=== PATIENT | female | born 1935 | race Caucasian/White ===

== ENCOUNTER 2021-10-01 15:50 | Emergency (ER) | payer OTHER ==
[2021-10-01 15:57] VITALS: BMI 30.2
[2021-10-01] MEDS ORDERED: LIDOCAINE VISCOUS 2% ORAL/TOP 15 ML UNIT-DOSE CUP MM ONE (16:32)
[2021-10-01] MEDS ORDERED: LIDOCAINE VISCOUS 2% ORAL/TOP 15 ML UNIT-DOSE CUP ONE (16:41)
[2021-10-01] MEDS ORDERED: FAMOTIDINE 10 MG TABLET PO ONE (16:46)
[2021-10-01] MEDS ORDERED: MAG HYDROX/AL HYDROX/SIMETH 30 ML UNIT-DOSE CUP PO ONE (16:46)
[2021-10-01] MEDS ORDERED: METOCLOPRAMIDE HCL INJECTION 10 MG/2 ML VIAL IVPB ONE (16:51)
[2021-10-01] MEDS ORDERED: MAG HYDROX/AL HYDROX/SIMETH 30 ML UNIT-DOSE CUP ONE (16:53)
[2021-10-01] MEDS ORDERED: FAMOTIDINE 20 MG TABLET ONE (16:53)
[2021-10-01] MEDS ORDERED: METOCLOPRAMIDE HCL INJECTION 10 MG/2 ML VIAL ONE (16:53)
[2021-10-01 17:21] LABS: BASO % 0.3 % (0-2.0); EOS % 0.5 % (0-4.5); HEMOGLOBIN 13.7 GM/dL (10.7-15.3); LYMPH % 15.9 % (8-40); MCH 29.3 pg (25.7-33.7); MCHC 34.2 g/dl (32.0-36.0); MEAN CELL VOLUME 85.6 fl (80-96); MEAN PLT VOLUME 7.2 fl (7.5-11.1); MONO % 4.1 % (3.8-10.2); NEUT % 79.2 % (42.8-82.8); PLATELET COUNT 263 10^3/uL (134-434); RBC 4.67 M/mm3 (3.60-5.2); RDW 13.8 % (11.6-15.6); WHITE BLOOD COUNT 9.8 K/mm3 (4.0-10.0)
[2021-10-01 17:36] LABS: CHLORIDE 96 mmol/L (98-107); SODIUM 131 mmol/L (136-145)
[2021-10-01 17:39] LABS: ALBUMIN 3.7 g/dl (3.4-5.0); ANION GAP 7 MMOL/L (8-16); BLOOD UREA NITROGEN 12.6 mg/dL (7-18); CALCIUM 8.6 mg/dL (8.5-10.1); CO2 28 mmol/L (21-32); GLUCOSE,RANDOM 142 mg/dL (74-106); LIPASE 82 U/L (73-393); MAGNESIUM 1.7 mg/dL (1.8-2.4)
[2021-10-01 17:42] LABS: CREATININE 0.8 mg/dL (0.55-1.3); SGOT/AST 21 U/L (15-37); SGPT/ALT 22 U/L (13-61)
[2021-10-01 17:43] LABS: PHOSPHOROUS 3.5 mg/dL (2.5-4.9)
[2021-10-01 17:44] LABS: BILIRUBIN,TOTAL 0.6 mg/dL (0.2-1); TOT PROT 7.4 g/dl (6.4-8.2)
[2021-10-01 17:45] LABS: ALK PHOS 47 U/L (45-117)
[2021-10-01] MEDS ORDERED: CEFEPIME HCL/D5W 2 GM/50 ML BAG IVPB ONE (19:32)
[2021-10-01] MEDS ORDERED: VORICONAZOLE 50 MG TABLET (RESTRICTED TO ID) PO ONE (19:57)
[2021-10-01] MEDS ORDERED: CEFEPIME 2 GM/100 ML BAG IVPB ONE (20:43)
[2021-10-01 20:53] VITALS: TEMP 97.5
[2021-10-01] MEDS ORDERED: VORICONAZOLE PO ONE (21:00)
[2021-10-01 22:49] VITALS: BP 148/65; PULSE 80
== END 2021-10-01 22:49 | disposition short-term general hospital (02) ==
LOC: JER 15:50
DX: H92.01 Otalgia, right ear (principal); H70.91 Unspecified mastoiditis, right ear
CPT/HCPCS: 36415; 70470-TC; 70481-TC; 71045-TC-FY; 80053; 83690; 83735; 84100; 84484; 85025; 93005; 93010; 96365; 99285-25; C9803; J3465; Q9967; U0003; U0005

== ENCOUNTER 2023-04-19 19:54 | Observation (INO) | payer OTHER ==
[2023-04-19 19:58] VITALS: BMI 30.2
[2023-04-19 21:42] LABS: BASO % 0.4 % (0-2.0); EOS % 1.3 % (0-4.5); HEMATOCRIT 36.2 % (32.4-45.2); HEMOGLOBIN 12.4 GM/dL (10.7-15.3); LYMPH % 12.2 % (8-40); MCH 29.2 pg (25.7-33.7); MCHC 34.2 g/dl (32.0-36.0); MEAN CELL VOLUME 85.6 fl (80-96); MEAN PLT VOLUME 7.2 fl (7.5-11.1); MONO % 6.3 % (3.8-10.2); NEUT % 79.8 % (42.8-82.8); PLATELET COUNT 222 10^3/uL (134-434); RBC 4.24 M/mm3 (3.60-5.2); RDW 14.4 % (11.6-15.6); WHITE BLOOD COUNT 12.5 K/mm3 (4.0-10.0)
[2023-04-19 21:46] LABS: EPI CELLS 7 /uL (0-25.1); HYALINE CASTS 1 /uL (0-3.1); PH,URINE 5.5 (5.0-8.0); URINE APPEARANCE Error; URINE BACTERIA 2525 /uL (0-1359); URINE BILIRUBIN NEGATIVE (NEGATIVE); URINE COLOR DK YELLOW; URINE GLUCOSE (UA) NEGATIVE (NEGATIVE); URINE KETONE TRACE (NEGATIVE); URINE LEUK ESTERASE 3+ (NEGATIVE); URINE NITRITE POSITIVE (NEGATIVE); URINE PROTEIN 3+ (NEGATIVE); URINE RBC 15270 /uL (0-23.9); URINE WBC 7642 /uL (0-25.8)
[2023-04-19 21:51] LABS: INR 1.03 (0.83-1.09)
[2023-04-19 21:53] LABS: ACTIVATED PTT 30.2 SECONDS (25.2-36.5)
[2023-04-19 22:02] LABS: POTASSIUM 4.8 mmol/L (3.5-5.1)
[2023-04-19 22:04] LABS: ALBUMIN 3.7 g/dl (3.4-5.0); BLOOD UREA NITROGEN 15.4 mg/dL (7-18); CALCIUM 8.9 mg/dL (8.5-10.1)
[2023-04-19 22:05] LABS: MAGNESIUM 1.7 mg/dL (1.8-2.4)
[2023-04-19] MEDS ORDERED: CEFTRIAXONE 1 GM in DEXTROSE 5%-WATER - 100 ML IVPB ONE (22:05)
[2023-04-19] MEDS ORDERED: CEFTRIAXONE 1 GM/50 ML BAG ONE (22:06)
[2023-04-19 22:08] LABS: CREATININE 0.9 mg/dL (0.55-1.3)
[2023-04-19 22:09] LABS: BILIRUBIN,TOTAL 0.4 mg/dL (0.2-1); TOT PROT 6.9 g/dl (6.4-8.2)
[2023-04-20] MEDS ORDERED: MAGNESIUM SULF 50% (8.12 MEQ/2 ML-1 GM VIAL) IVPB ONE (00:48)
[2023-04-20] MEDS ORDERED: MAGNESIUM 2GM/50ML STERILE WATER IVPB IVPB ONE (00:48)
[2023-04-20] MEDS ORDERED: MAGNESIUM SULFATE IN WATER 2 GM/50 ML IVPB IVPB ONE (00:57)
[2023-04-20] MEDS: LEVOTHYROXINE NA 150 MCG TABLET PO SCH (07:06)
[2023-04-20] MEDS: LOSARTAN POTASSIUM 50 MG TABLET PO SCH (09:43)
[2023-04-20] MEDS: CEFTRIAXONE 1 GM in DEXTROSE 5%-WATER - 50 ML IVPB SCH (09:43)
[2023-04-20] MEDS: PANTOPRAZOLE 40 MG TABLET PO SCH (09:43)
[2023-04-20] MEDS ORDERED: POLYETHYLENE GLYCOL 3350 255 GM BTL PO ONE (10:42)
[2023-04-20] MEDS: NEBIVOLOL 5 MG TABLET (FP) PO SCH (10:49)
[2023-04-20] MEDS: rOPINIRole HCL 0.5 MG TABLET PO SCH ×2 (10:49→21:44)
[2023-04-20 10:57] LABS: BASO % 0.3 % (0-2.0); EOS % 1.6 % (0-4.5); HEMATOCRIT 38.9 % (32.4-45.2); HEMOGLOBIN 13.2 GM/dL (10.7-15.3); MCH 29.2 pg (25.7-33.7); MCHC 33.9 g/dl (32.0-36.0); MEAN CELL VOLUME 85.9 fl (80-96); MEAN PLT VOLUME 7.5 fl (7.5-11.1); MONO % 6.3 % (3.8-10.2); NEUT % 70.8 % (42.8-82.8); PLATELET COUNT 223 10^3/uL (134-434); RBC 4.53 M/mm3 (3.60-5.2); RDW 13.5 % (11.6-15.6)
[2023-04-20 11:08] LABS: POTASSIUM 5.2 mmol/L (3.5-5.1)
[2023-04-20 11:21] LABS: BLOOD UREA NITROGEN 11.8 mg/dL (7-18); CALCIUM 9.5 mg/dL (8.5-10.1)
[2023-04-20 11:25] LABS: CREATININE 0.7 mg/dL (0.55-1.3)
[2023-04-20] MEDS ORDERED: SODIUM PHOSPHATE/NA BIPHOS 133 ML ENEMA RC ONE ×2 (12:00→16:00)
[2023-04-20] MEDS ORDERED: SODIUM CHLORIDE 0.45% 1,000 ML IV SCH (17:00)
[2023-04-20] MEDS ORDERED: ACETAMINOPHEN 325 MG TABLET (FP) PO ONE (19:47)
[2023-04-20] MEDS: INSULIN SLIDING SCALE (NOVOLOG) 1 VIAL SQ SCH (21:48)
[2023-04-20] MEDS ORDERED: ATORVASTATIN CA 20 MG TABLET (FP) PO SCH (22:00)
[2023-04-21] MEDS: LEVOTHYROXINE NA 150 MCG TABLET PO SCH (06:04)
[2023-04-21] MEDS: INSULIN SLIDING SCALE (NOVOLOG) 1 VIAL SQ SCH ×3 (06:04→16:24)
[2023-04-21] MEDS: LOSARTAN POTASSIUM 50 MG TABLET PO SCH (10:50)
[2023-04-21] MEDS: NEBIVOLOL 5 MG TABLET (FP) PO SCH (10:50)
[2023-04-21] MEDS: CEFTRIAXONE 1 GM in DEXTROSE 5%-WATER - 50 ML IVPB SCH (10:50)
[2023-04-21] MEDS: PANTOPRAZOLE 40 MG TABLET PO SCH (10:50)
[2023-04-21] MEDS: rOPINIRole HCL 0.5 MG TABLET PO SCH (10:50)
[2023-04-21] MEDS ORDERED: BISACODYL 5 MG TABLET.DR (FP) PO ONE (14:00)
[2023-04-21 15:55] VITALS: BP 129/55; PULSE 67; RESP 18; TEMP 98.9
[2023-04-21] MEDS ORDERED: POLYETHYLENE GLYCOL 3350 255 GM BTL PO ONE (16:00)
[2023-04-22] MEDS ORDERED: SODIUM PHOSPHATE/NA BIPHOS 133 ML ENEMA RC ONE (10:00)
[2023-04-22] MEDS ORDERED: SODIUM PHOSPHATE/NA BIPHOS 133 ML ENEMA PR ONE (10:05)
== END 2023-04-21 18:22 | disposition home or self-care (01) ==
LOC: JER 19:54 → JERBED 23:39 → J5S 04-20 01:58
PROVIDERS: ADMIT Internal Medicine; ATTEND Family Medicine
PROC: 3E03329 Introduction of Other Anti-infective into Peripheral Vein, Percutaneous Approach (ICD-10-PCS; principal; 2023-04-19)
PROC: 3E0337Z Introduction of Electrolytic and Water Balance Substance into Peripheral Vein, Percutaneous Approach (ICD-10-PCS; 2023-04-19)
DX: N39.0 Urinary tract infection, site not specified (principal); K82.8 Other specified diseases of gallbladder; R93.5 Abnormal findings on diagnostic imaging of other abdominal regions, including retroperitoneum; I10 Essential (primary) hypertension; E11.9 Type 2 diabetes mellitus without complications; R10.30 Lower abdominal pain, unspecified; E03.9 Hypothyroidism, unspecified; K21.9 Gastro-esophageal reflux disease without esophagitis; H92.01 Otalgia, right ear; H70.91 Unspecified mastoiditis, right ear; Z79.84 Long term (current) use of oral hypoglycemic drugs
CPT/HCPCS: 0241U-QW; 36415; 71045-TC-FY; 74176-TC; 76705-TC; 80048; 80053; 81003; 82962; 83735; 84439; 84443; 85025; 85610; 85730; 86850; 86900; 86901; 87086; 87186; 93005; 93010; 96365; 96375; 99285-25; G0378

== ENCOUNTER 2023-10-09 13:50 | Emergency (ER) | payer OTHER ==
[2023-10-09 14:28] VITALS: TEMP 97.6; BMI 30.2
[2023-10-09] MEDS ORDERED: ACETAMINOPHEN 325 MG TABLET (FP) PO ONE (15:26)
[2023-10-09 15:53] LABS: BASO % 0.3 % (0-2.0); EOS % 0.9 % (0-4.5); HEMATOCRIT 40.2 % (32.4-45.2); LYMPH % 22.3 % (8-40); MCH 27.9 pg (25.7-33.7); MCHC 32.3 g/dl (32.0-36.0); MEAN CELL VOLUME 86.5 fl (80-96); MEAN PLT VOLUME 7.3 fl (7.5-11.1); MONO % 6.1 % (3.8-10.2); NEUT % 70.4 % (42.8-82.8); PLATELET COUNT 238 10^3/uL (134-434); RBC 4.65 M/mm3 (3.60-5.2); RDW 14.3 % (11.6-15.6); WHITE BLOOD COUNT 8.7 K/mm3 (4.0-10.0)
[2023-10-09 16:03] LABS: EPI CELLS 2 /uL (0-25.1); HYALINE CASTS 0 /uL (0-3.1); PH,URINE 5.5 (5.0-8.0); URINE APPEARANCE CLEAR; URINE BACTERIA 10 /uL (0-1359); URINE BILIRUBIN NEGATIVE (NEGATIVE); URINE COLOR YELLOW; URINE GLUCOSE (UA) NEGATIVE (NEGATIVE); URINE KETONE NEGATIVE (NEGATIVE); URINE LEUK ESTERASE TRACE (NEGATIVE); URINE NITRITE NEGATIVE (NEGATIVE); URINE PROTEIN NEGATIVE (NEGATIVE); URINE RBC 9 /uL (0-23.9); URINE UROBILINOGEN 0.2 mg/dL (0.2-1.0); URINE WBC 13 /uL (0-25.8)
[2023-10-09] MEDS ORDERED: ACETAMINOPHEN 325 MG TABLET (FP) ONE (16:03)
[2023-10-09 16:15] LABS: POTASSIUM 4.7 mmol/L (3.5-5.1)
[2023-10-09 16:18] LABS: ALBUMIN 3.6 g/dl (3.4-5.0); BLOOD UREA NITROGEN 17.1 mg/dL (7-18)
[2023-10-09 16:21] LABS: CREATININE 0.6 mg/dL (0.55-1.3)
[2023-10-09 16:22] LABS: BILIRUBIN,TOTAL 0.4 mg/dL (0.2-1)
[2023-10-09 18:51] VITALS: BP 128/62; PULSE 76; RESP 18
== END 2023-10-09 21:06 | disposition home or self-care (01) ==
LOC: JER 13:50
DX: S22.32XA Fracture of one rib, left side, initial encounter for closed fracture (principal); J90 Pleural effusion, not elsewhere classified; S39.012A Strain of muscle, fascia and tendon of lower back, initial encounter; M54.50 Low back pain, unspecified; R10.9 Unspecified abdominal pain; W01.0XXA Fall on same level from slipping, tripping and stumbling without subsequent striking against object, initial encounter; Y93.01 Activity, walking, marching and hiking
CPT/HCPCS: 36415; 70450-TC; 71260-TC; 72100-TC-FY; 72125-TC; 72170-TC-FY; 73502-TC-RT-FY; 74177-TC; 80053; 81003; 85025; 87086; 93005; 93010; 99285-25; Q9967

== ENCOUNTER 2024-06-16 11:05 | Emergency (ER) | payer OTHER ==
[2024-06-16 11:30] VITALS: BP 150/73; PULSE 71; RESP 16; TEMP 98.7; BMI 27.8
[2024-06-16 12:36] LABS: BASO % 0.4 % (0-2.0); EOS % 1.3 % (0-4.5); HEMATOCRIT 39.2 % (32.4-45.2); HEMOGLOBIN 13.1 GM/dL (10.7-15.3); LYMPH % 28.3 % (8-40); MCH 28.6 pg (25.7-33.7); MCHC 33.5 g/dl (32.0-36.0); MEAN CELL VOLUME 85.5 fl (80-96); MEAN PLT VOLUME 6.9 fl (7.5-11.1); PLATELET COUNT 233 10^3/uL (134-434); RBC 4.59 M/mm3 (3.60-5.2); RDW 14.3 % (11.6-15.6); WHITE BLOOD COUNT 8.5 K/mm3 (4.0-10.0)
[2024-06-16 12:37] LABS: EPI CELLS 4 /uL (0-25.1); HYALINE CASTS 1 /uL (0-3.1); PH,URINE 5.5 (5.0-8.0); URINE APPEARANCE CLEAR; URINE BACTERIA 852 /uL (0-1359); URINE BILIRUBIN NEGATIVE (NEGATIVE); URINE COLOR YELLOW; URINE GLUCOSE (UA) NEGATIVE (NEGATIVE); URINE KETONE NEGATIVE (NEGATIVE); URINE LEUK ESTERASE 2+ (NEGATIVE); URINE NITRITE NEGATIVE (NEGATIVE); URINE PROTEIN NEGATIVE (NEGATIVE); URINE RBC 26 /uL (0-23.9); URINE UROBILINOGEN 0.2 mg/dL (0.2-1.0); URINE WBC 499 /uL (0-25.8)
[2024-06-16 13:01] LABS: CALCIUM 8.7 mg/dL (8.5-10.1)
[2024-06-16 13:02] LABS: ALBUMIN 3.7 g/dl (3.4-5.0); BLOOD UREA NITROGEN 10.4 mg/dL (7-18)
[2024-06-16 13:05] LABS: CREATININE 0.6 mg/dL (0.55-1.3)
[2024-06-16 13:06] LABS: BILIRUBIN,TOTAL 0.7 mg/dL (0.2-1); TOT PROT 7.1 g/dl (6.4-8.2)
[2024-06-16 17:14] LABS: HIV INTERPRETATION NEGATIVE (NEGATIVE)
== END 2024-06-16 14:03 | disposition home or self-care (01) ==
LOC: JER 11:05
DX: N39.0 Urinary tract infection, site not specified (principal); R30.0 Dysuria; R11.10 Vomiting, unspecified; R10.30 Lower abdominal pain, unspecified; H92.02 Otalgia, left ear; Z20.822 Contact with and (suspected) exposure to COVID-19
CPT/HCPCS: 0241U-QW; 36415; 80053; 81003; 85025; 86803; 87086; 87186; 87389; 93005; 93010; 99283-25

== ENCOUNTER 2024-06-17 18:07 | Observation (INO) | payer OTHER ==
[2024-06-17 18:29] VITALS: BMI 30.7
[2024-06-17] MEDS ORDERED: ONDANSETRON *ODT* 4 MG TABLET ONE (19:14)
[2024-06-17] MEDS ORDERED: FAMOTIDINE 20 MG TABLET ONE (19:14)
[2024-06-17] MEDS: FAMOTIDINE 20 MG TABLET PO ONE (19:18)
[2024-06-17] MEDS: ONDANSETRON *ODT* 4 MG TABLET SL ONE (19:18)
[2024-06-17] MEDS: LACTATED RINGERS SOLUTION 1000 ML INFUS.BAG IV ONE ×2 (20:03→22:59)
[2024-06-17 20:06] LABS: BASO % 0.2 % (0-2.0); EOS % 1.8 % (0-4.5); HEMATOCRIT 37.4 % (32.4-45.2); HEMOGLOBIN 12.5 GM/dL (10.7-15.3); LYMPH % 4.9 % (8-40); MCH 28.3 pg (25.7-33.7); MCHC 33.3 g/dl (32.0-36.0); MEAN CELL VOLUME 84.8 fl (80-96); MEAN PLT VOLUME 6.9 fl (7.5-11.1); MONO % 4.8 % (3.8-10.2); NEUT % 88.3 % (42.8-82.8); PLATELET COUNT 209 10^3/uL (134-434); RBC 4.41 M/mm3 (3.60-5.2); RDW 14.6 % (11.6-15.6)
[2024-06-17] MEDS ORDERED: CEFTRIAXONE 1 GM/50 ML BAG ONE (20:14)
[2024-06-17 20:44] LABS: POTASSIUM 4.5 mmol/L (3.5-5.1)
[2024-06-17 20:45] LABS: CALCIUM 8.6 mg/dL (8.5-10.1)
[2024-06-17 20:46] LABS: ALBUMIN 3.4 g/dl (3.4-5.0); BLOOD UREA NITROGEN 20.3 mg/dL (7-18)
[2024-06-17 20:49] LABS: CREATININE 1.6 mg/dL (0.55-1.3)
[2024-06-17 20:51] LABS: BILIRUBIN,TOTAL 0.6 mg/dL (0.2-1); TOT PROT 6.2 g/dl (6.4-8.2)
[2024-06-17 21:34] LABS: EPI CELLS 28 /uL (0-25.1); HYALINE CASTS 4 /uL (0-3.1); PH,URINE 5.5 (5.0-8.0); URINE APPEARANCE CLEAR; URINE BACTERIA 31 /uL (0-1359); URINE BILIRUBIN NEGATIVE (NEGATIVE); URINE COLOR YELLOW; URINE GLUCOSE (UA) NEGATIVE (NEGATIVE); URINE KETONE NEGATIVE (NEGATIVE); URINE LEUK ESTERASE 2+ (NEGATIVE); URINE NITRITE NEGATIVE (NEGATIVE); URINE PROTEIN NEGATIVE (NEGATIVE); URINE RBC 38 /uL (0-23.9); URINE UROBILINOGEN 0.2 mg/dL (0.2-1.0); URINE WBC 319 /uL (0-25.8)
[2024-06-18] MEDS ORDERED: ACETAMINOPHEN INJECTION 100 ML IVPB ONE (00:23)
[2024-06-18] MEDS: ACETAMINOPHEN 1000 MG/100 ML BAG IVPB ONE (00:25)
[2024-06-18] MEDS ORDERED: TRIMETHOBENZAMIDE HCL 200MG/2ML INJ IM ONE (02:28)
[2024-06-18] MEDS: TRIMETHOBENZAMIDE HCL 200MG/2ML INJ IM ONE (02:35)
[2024-06-18] MEDS: LACTATED RINGERS SOLUTION 1,000 ML/1,000 ML INFUS.BAG IV SCH (03:14)
[2024-06-18] MEDS ORDERED: HEPARIN NA (PORCINE) 5,000 UNITS/ML 1ML VIAL ONE (05:57)
[2024-06-18] MEDS: HEPARIN NA (PORCINE) 5,000 UNITS/ML 1ML VIAL SQ SCH (06:04)
[2024-06-18 06:38] LABS: BASO % 0.2 % (0-2.0); EOS % 3.4 % (0-4.5); HEMATOCRIT 35.6 % (32.4-45.2); LYMPH % 10.1 % (8-40); MCH 28.7 pg (25.7-33.7); MCHC 33.8 g/dl (32.0-36.0); MEAN CELL VOLUME 85.1 fl (80-96); MEAN PLT VOLUME 7.4 fl (7.5-11.1); MONO % 5.2 % (3.8-10.2); NEUT % 81.1 % (42.8-82.8); PLATELET COUNT 182 10^3/uL (134-434); RBC 4.18 M/mm3 (3.60-5.2); RDW 14.8 % (11.6-15.6); WHITE BLOOD COUNT 9.3 K/mm3 (4.0-10.0)
[2024-06-18] MEDS ORDERED: PANTOPRAZOLE 40 MG TABLET PO ONE (07:13)
[2024-06-18] MEDS ORDERED: LEVOTHYROXINE NA 25 MCG TABLET (FP) ONE (07:13)
[2024-06-18] MEDS ORDERED: LEVOTHYROXINE NA 100 MCG TABLET (FP) ONE (07:13)
[2024-06-18 07:15] LABS: POTASSIUM 4.1 mmol/L (3.5-5.1)
[2024-06-18] MEDS: PANTOPRAZOLE 40 MG TABLET PO SCH (07:19)
[2024-06-18] MEDS: LEVOTHYROXINE NA 125 MCG TABLET (FP) PO SCH (07:19)
[2024-06-18 07:23] LABS: CALCIUM 7.9 mg/dL (8.5-10.1)
[2024-06-18 07:24] LABS: BLOOD UREA NITROGEN 16.1 mg/dL (7-18); MAGNESIUM 1.6 mg/dL (1.8-2.4)
[2024-06-18 07:27] LABS: CREATININE 0.9 mg/dL (0.55-1.3)
[2024-06-18 07:28] LABS: BILIRUBIN,TOTAL 0.6 mg/dL (0.2-1); TOT PROT 5.4 g/dl (6.4-8.2)
[2024-06-18] MEDS: ERTAPENEM SODIUM 1 GM in SODIUM CHLORIDE 50 ML IVPB SCH (13:30)
[2024-06-18] MEDS: rOPINIRole HCL 0.5 MG TABLET PO SCH (14:06)
[2024-06-18] MEDS: CEFTRIAXONE 1 GM in DEXTROSE 5%-WATER - 50 ML IVPB SCH (14:17)
[2024-06-18] MEDS: ROSUVASTATIN CA 10 MG TABLET PO SCH (21:36)
[2024-06-18] MEDS: ONDANSETRON 4 MG/2 ML VIAL IVPUSH ONE (21:36)
[2024-06-19] MEDS: ACETAMINOPHEN 1000 MG/100 ML BAG IVPB PRN (02:18)
[2024-06-19 06:24] VITALS: RESP 18
[2024-06-19 08:09] LABS: POTASSIUM 3.8 mmol/L (3.5-5.1)
[2024-06-19 08:11] LABS: CALCIUM 8.1 mg/dL (8.5-10.1)
[2024-06-19 08:12] LABS: ALBUMIN 2.8 g/dl (3.4-5.0); BLOOD UREA NITROGEN 11.7 mg/dL (7-18)
[2024-06-19 08:15] LABS: CREATININE 0.7 mg/dL (0.55-1.3)
[2024-06-19 08:17] LABS: BILIRUBIN,TOTAL 0.8 mg/dL (0.2-1); TOT PROT 5.4 g/dl (6.4-8.2)
[2024-06-19 08:19] LABS: BASO % 0.1 % (0-2.0); EOS % 4.1 % (0-4.5); HEMATOCRIT 33.6 % (32.4-45.2); HEMOGLOBIN 11.6 GM/dL (10.7-15.3); LYMPH % 21.5 % (8-40); MCH 29.3 pg (25.7-33.7); MCHC 34.7 g/dl (32.0-36.0); MEAN CELL VOLUME 84.5 fl (80-96); MEAN PLT VOLUME 7.4 fl (7.5-11.1); MONO % 10.2 % (3.8-10.2); NEUT % 64.1 % (42.8-82.8); PLATELET COUNT 184 10^3/uL (134-434); RBC 3.97 M/mm3 (3.60-5.2); RDW 14.3 % (11.6-15.6); WHITE BLOOD COUNT 6.7 K/mm3 (4.0-10.0)
[2024-06-19] MEDS: rOPINIRole HCL 1 MG TABLET (FP) PO SCH (22:06)
[2024-06-20] MEDS: DOCUSATE SODIUM 100 MG CAPSULE (FP) PO ONE (00:35)
[2024-06-20 07:53] VITALS: TEMP 98.4
[2024-06-20] MEDS ORDERED: HYDROCORTISONE 2.5% LOTION - 1 BOTTLE TP PRN (08:35)
[2024-06-20] MEDS: POLYETHYLENE GLYCOL (HEALTHYLAX) 3350 17 GM PACKET PO SCH (09:28)
[2024-06-20] MEDS: MAGNESIUM HYDROX 2400MG/30ML ORAL SUSPENSION 30 ML CUP PO ONE (09:28)
[2024-06-20 10:31] VITALS: BP 152/76; PULSE 82
[2024-06-20 11:03] LABS: BASO % 0.3 % (0-2.0); EOS % 3.9 % (0-4.5); HEMATOCRIT 36.7 % (32.4-45.2); HEMOGLOBIN 12.6 GM/dL (10.7-15.3); LYMPH % 18.6 % (8-40); MCH 29.1 pg (25.7-33.7); MCHC 34.4 g/dl (32.0-36.0); MEAN CELL VOLUME 84.7 fl (80-96); MEAN PLT VOLUME 7.4 fl (7.5-11.1); MONO % 8.1 % (3.8-10.2); NEUT % 69.1 % (42.8-82.8); PLATELET COUNT 228 10^3/uL (134-434); RBC 4.33 M/mm3 (3.60-5.2); RDW 14.2 % (11.6-15.6); WHITE BLOOD COUNT 6.4 K/mm3 (4.0-10.0)
[2024-06-20 11:10] LABS: POTASSIUM 4.4 mmol/L (3.5-5.1)
[2024-06-20 11:32] LABS: ALBUMIN 3.1 g/dl (3.4-5.0); BLOOD UREA NITROGEN 9.4 mg/dL (7-18); CALCIUM 8.9 mg/dL (8.5-10.1)
[2024-06-20 11:36] LABS: CREATININE 0.6 mg/dL (0.55-1.3)
[2024-06-20 11:38] LABS: BILIRUBIN,TOTAL 0.3 mg/dL (0.2-1); TOT PROT 6.2 g/dl (6.4-8.2)
== END 2024-06-20 14:24 | disposition home or self-care (01) ==
LOC: JER 18:07 → JERBED 21:10 → UNDOADMOB 21:10 → OBSVTOIN 06-18 01:58 → INTOOBSV 06-18 01:58 → J8W 06-18 10:45 → JERBED 06-18 10:45 → J8W 06-19 12:54
PROVIDERS: ADMIT Internal Medicine; ATTEND Family Medicine
PROC: 3E033NZ Introduction of Analgesics, Hypnotics, Sedatives into Peripheral Vein, Percutaneous Approach (ICD-10-PCS; principal; 2024-06-19)
PROC: 3E03329 Introduction of Other Anti-infective into Peripheral Vein, Percutaneous Approach (ICD-10-PCS; 2024-06-19)
PROC: 3E0337Z Introduction of Electrolytic and Water Balance Substance into Peripheral Vein, Percutaneous Approach (ICD-10-PCS; 2024-06-19)
PROC: 3E023GC Introduction of Other Therapeutic Substance into Muscle, Percutaneous Approach (ICD-10-PCS; 2024-06-19)
DX: N17.9 Acute kidney failure, unspecified (principal); E03.9 Hypothyroidism, unspecified; A41.9 Sepsis, unspecified organism; N39.0 Urinary tract infection, site not specified; I10 Essential (primary) hypertension; E78.5 Hyperlipidemia, unspecified; K21.9 Gastro-esophageal reflux disease without esophagitis; E11.9 Type 2 diabetes mellitus without complications; R10.9 Unspecified abdominal pain
CPT/HCPCS: 0241U-QW; 36415; 71045-TC-FY; 76700-TC; 76775-TC; 80053; 81003; 82962; 83036; 83735; 84100; 84484; 85025; 87086; 93005; 93010; 96361; 96365; 96372; 96375; 96376; 99285-25; G0378; J0131; J1644; Q0162

== ENCOUNTER 2025-05-12 07:17 | Day surgery (SDC) | payer OTHER ==
[2025-05-11 12:28] VITALS: BMI 32.3
[2025-05-12] MEDS ORDERED: BUPIVACAINE HCL/PF 0.5% (5MG/ML) 10 ML VIAL ONE (07:35)
[2025-05-12] MEDS ORDERED: TRIAMCINOLONE ACET 40MG/1ML VIAL ONE (07:35)
[2025-05-12] MEDS ORDERED: DEXAMETHASONE SOD PHOSPHATE 10 MG/1 ML VIAL ONE (07:36)
[2025-05-12] MEDS ORDERED: LIDOCAINE HCL/PF 1% SDV 5ML VIAL ONE (07:36)
[2025-05-12] MEDS ORDERED: BUPIVACAINE HCL/PF 0.75% 10 ML VIAL ONE (07:36)
[2025-05-12 08:23] VITALS: RESP 18; TEMP 97.7
[2025-05-12] MEDS ORDERED: ACETAMINOPHEN 500 MG TABLET (FP) PO PRN (08:34)
[2025-05-12] MEDS: LIDOCAINE HCL 1% PRESERVATIVE FREE - 30ML VIAL IJ ONE (09:11)
[2025-05-12] MEDS: BUPIVACAINE HCL/PF 0.75% 10 ML VIAL CAUD ONE (09:13)
[2025-05-12 09:33] VITALS: BP 114/57; PULSE 66
== END 2025-05-12 10:02 | disposition home or self-care (01) ==
LOC: JASU-SURG 07:17
PROVIDERS: ATTEND Pain Medicine Pain Medicine
PROC: 3E0T33Z Introduction of Anti-inflammatory into Peripheral Nerves and Plexi, Percutaneous Approach (ICD-10-PCS; 2025-05-12)
PROC: 3E0T3BZ Introduction of Anesthetic Agent into Peripheral Nerves and Plexi, Percutaneous Approach (ICD-10-PCS; principal; 2025-05-12 09:30)
DX: M47.816 Spondylosis without myelopathy or radiculopathy, lumbar region (principal)
CPT/HCPCS: 76000-TC-FY; J1100

== ENCOUNTER 2025-07-13 06:22 | Day surgery (SDC) | payer OTHER ==
[2025-07-13] MEDS ORDERED: LIDOCAINE HCL/PF 1% SDV 5ML VIAL ONE (07:29)
[2025-07-13] MEDS ORDERED: BUPIVACAINE HCL/PF 0.75% 10 ML VIAL ONE (07:29)
[2025-07-13 10:32] VITALS: RESP 20
[2025-07-13 12:25] VITALS: BP 137/72; PULSE 91; TEMP 97.7
== END 2025-07-13 12:01 | disposition home or self-care (01) ==
LOC: JASU-SURG 06:22
PROVIDERS: ATTEND Pain Medicine Pain Medicine
PROC: 3E0T33Z Introduction of Anti-inflammatory into Peripheral Nerves and Plexi, Percutaneous Approach (ICD-10-PCS; 2025-07-13)
PROC: 3E0T3BZ Introduction of Anesthetic Agent into Peripheral Nerves and Plexi, Percutaneous Approach (ICD-10-PCS; principal; 2025-07-13 11:18)
DX: M47.812 Spondylosis without myelopathy or radiculopathy, cervical region (principal)
CPT/HCPCS: 76000-TC-FY